=== PATIENT | female | born 1970 | race Hispanic/Latino ===

== ENCOUNTER 2023-12-16 15:11 | Emergency (ER) | payer BC ==
--- OUTSIDE RECORDS SUMMARY | 2023-12-16 15:14 | XMS REPORT | Continuity of Care Document ---
Author Name Unknown Address [address] [place] [address] [email or web address] Address [address] [place] [address] Care Team Providers Care Commercial Or Institutional Cleaner Name Role Phone Cataula Jeannette Attending Clinician Unavailable Payers Payer Name Policy Type Policy Number Effective Date Expirati on Date Source [facility] 6 [id number] [facility] Problems Condition Name Condition Details Condition Category Status Onset Date Resolution Date Last Treatment Date Treating Clinician Comments Source [id number] Internal derangemen t of left knee Problem [facility] [id number] Hx of bariatric surgery Problem Active [facility] [id number] Amenorrhea Problem Active Com mon [facility] [id number] Injury of left lower leg, initial encounter Problem Active [facility] Allergies, Adverse Reactions, Alerts Allergy Name Allergy Type Status Severity Reaction(s) Onset Date Inactive Date Treating Clinician Comments Source Latex Latex Active Unknown [facility] Social History Social Habit Start Date Stop Date Quantity Comments Source History of Tobacco Use [facility] Sex Assigned At [facility] Smoking Status Start Date Stop Date Source Never Smoker [facility] Medications Ordered Medication Name Filled Medication Name Start Date Stop Date Current Medication? Ordering Clinician Indication Dosage Frequency Signature (SIG) Comments Components Source Calcium Calcium No Calcium Multivitami n - Multivitami n - No 1{table t} QD Multivitam in - Vital Signs Vital Name Observation Time Observation Value Comments Elena rivers height 2023-12-10 09:00:00 56 [in_i] Commo n [facility] weight 2023-12-10 09:00:00 214.6 [lb_av] Co mmon [facility] temperature 2023-12-10 09:00:00 97.7 [degF] Com mon [facility] bmi 2023-12-10 09:00:00 48.11 kg/m2 Comm on [facility] oximetry 2023-12-10 09:00:00 99 % Comm n [facility] respiratory rate 2023-12-10 09:00:00 17 /min [facility] blood pressure systolic 2023-12-10 09:00:00 115 mm[Hg] [facility] blood pressure diastolic 2023-12-10 09:00:00 65 mm[Hg] [facility] height 2021-10-02 13:30:00 56 [in_i] Commo n [facility] weight 2021-10-02 13:30:00 207 [lb_av] Comm on [facility] bmi 2021-10-02 13:30:00 46.4 kg/m2 Commo n [facility] blood pressure systolic 2021-10-02 13:30:00 124 mm[Hg] [facility] blood pressure diastolic 2021-10-02 13:30:00 76 mm[Hg] [facility] height 2021-09-14 10:00:00 56 [in_i] Commo n [facility] weight 2021-09-14 10:00:00 207.4 [lb_av] Co mmon [facility] temperature 2021-09-14 10:00:00 97.5 [degF] Com mon [facility] bmi 2021-09-14 10:00:00 46.49 kg/m2 Comm on [facility] oximetry 2021-09-14 10:00:00 99 % Commo n [facility] respiratory rate 2021-09-14 10:00:00 18 /min [facility] blood pressure systolic 2021-09-14 10:00:00 117 mm[Hg] [facility] blood pressure diastolic 2021-09-14 10:00:00 70 mm[Hg] [facility] Encounters Start Date/Time End Date/Time Encounter Type Admission Type Attending [facility] Care Facility Care Department Encounter ID Source 2023-12-10 08:15:00 Outpatient CataulaJeannette mandujano [facility]C ST[facility] [id number] [facility] 2023-12-06 09:54:00 Outpatient Jeannette Balderas [facility] ST[facility] [id number] [facility] 2023-08-21 08:27:00 Outpatient Jeannette Balderas [facility] ST[facility] [id number] [facility] 2023-04-24 10:36:00 Outpatient Jeannette Balderas [facility] ST[facility] [id number] [facility] 2022-02-27 15:06:03 Outpatient Jeannette Balderas [facility] ST[facility] [id number] [facility] 2021-11-20 11:33:03 Outpatient Jeannette Balderas [facility] ST[facility] [id number] [facility] 2021-11-10 14:50:00 Outpatient Jeannette Balderas STL[facility] ST[facility] [id number] [facility] 2021-10-02 13:17:01 Outpatient Jeannette Balderas [facility] ST[facility] [id number] [facility] 2021-09-19 09:49:03 Outpatient Jeannette Balderas [facility] ST[facility] [id number] [facility] 2021-09-14 09:31:03 Outpatient Jeannette Balderas [facility] ST[facility] [id number] [facility] 2023-12-10 00:00:00 2023-12-10 00:00:00 OFFICE VISIT NEW PT LEVEL 4 [facility] ST[facility] [id number] [facility] 2021-11-28 00:00:00 2021-11-28 00:00:00 (TEL) [facility]C ST[facility]C [id number] [facility] 2021-11-27 00:00:00 2021-11-27 00:00:00 OL DIG E/M SVC 5-10 MIN [facility]LMLC STL[facility]C [id number] [facility] 2021-11-16 00:00:00 2021-11-16 00:00:00 (TEL) STLMLC STL[facility]C [id number] [facility] 2021-11-03 00:00:00 2021-11-03 00:00:00 (TEL) [facility]C ST[facility]C [id number] [facility] 2021-10-05 00:00:00 2021-10-05 00:00:00 (TEL) [facility]C STL[facility]C [id number] [facility] 2021-10-04 00:00:00 2021-10-04 00:00:00 (TEL) [facility]C ST[facility]C [id number] [facility] 2021-10-02 00:00:00 2021-10-02 00:00:00 OFFICE VISIT NEW PT LEVEL 4 [facility] ST[facility] [id number] [facility] 2021-09-14 00:00:00 2021-09-14 00:00:00 OFFICE VISIT EST PT LEVEL 3 [facility] ST[facility]C [id number] [facility]
[2023-12-16] MEDS ORDERED: HYDROCODONE/APAP 5/325 MG TAB ONE (15:35)
--- NOTE | 2023-12-16 16:52 | RAD REPORT ---
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 No fracture, dis location or aggressive marrow pattern. Trace joint fluid.
--- NOTE | 2023-12-16 17:16 | EDPHYS ---
Physician Documentation [facility] Name: Judy Presley Age: 53 yrs Sex: Female : 1970 Arrival Date: 12/16/2023 Time: 15:11 Bed 9 Private MD: ED Physician Colten Sparks HPI: 12/15 15:26 This 53 yrs old Female presents to ER via Wheelchair with complaints of Knee ms3 Pain. 15:26 43-year-old female with past medical history of asthma presents to the emergency ms3 department for 3 weeks of left knee pain. Patient states an MRI with contrast was ordered by her primary care nurse practitioner and has been unable to reach her to schedule the MRI without contrast. Patient states she has been taking Tylenol 3 without relief. She denies nausea, vomiting. Patient states pain began after falling after stepping in a pothole 3 weeks ago.. ACTUARIAL INTERNSHIP: 16:50 unknown al5 Historical: - Allergies: 15:22 No Known Allergies; ll1 - PMHx: 15:22 Asthma; ll1 - PSHx: 15:22 gastric bypass; hernia repair; Cholecystectomy; ll1 - Immunization history:: Adult Immunizations up to date. - Infectious Disease History:: Denies. - Social history:: Smoking status: Patient denies any tobacco usage or history of. ROS: 15:26 Constitutional: Negative for fever, and chills. Cardiovascular: Negative for chest ms3 pain, and palpitations. Respiratory: Negative for shortness of breath, cough, wheezing, and pleuritic chest pain, Abdomen/GI: Negative for abdominal pain, nausea, vomiting, diarrhea, and constipation, 15:26 MS/extremity: Positive for Left knee pain, Exam: 15:26 Constitutional: This is a well developed, well nourished patient who is awake, alert, ms3 and in no acute distress. Chest/axilla: Normal chest wall appearance and motion. Nontender with no deformity. Cardiovascular: Regular rate and rhythm with a normal S1 and S2. No gallops, murmurs, or rubs. Normal PMI, no JVD. No pulse deficits. Respiratory: Lungs have equal breath sounds bilaterally, clear to auscultation and percussion. No rales, rhonchi or wheezes noted. No increased work of breathing, no retractions or nasal flaring. Abdomen/GI: Soft, non-tender, with normal bowel sounds. No distension or tympany. No guarding or rebound. No evidence of tenderness throughout. 15:26 Musculoskeletal/extremity: Extremities: noted in the Left knee: contusion, swelling, tenderness, Vital Signs: 15:21 BP 142 / 88; Pulse 70; Resp 16; Temp 97; Pulse Ox 97% on R/A; Weight 95.25 kg; Height 4 ll1 ft. 9 in. ; Pain 10/10; 16:49 BP 103 / 52; Pulse 65; Resp 16; Pulse Ox 100% on R/A; Pain 5/10; al5 17:49 BP 122 / 85; Pulse 60; Resp 16; Pulse Ox 100% on R/A; al5 15:21 Body Mass Index 45.44 (95.25 kg, 144.78 cm) ll1 15:21 Pain Scale: Adult ll1 16:49 Pain Scale: Adult al5 MDM: 15:24 Patient medically screened. ms3 15:26 Differential diagnosis: closed fracture, contusion. ms3 17:15 Data reviewed: vital signs, nurses notes, radiologic studies, and as a result, I will ms3 discharge patient. I considered the following discharge prescriptions or medication management in the emergency department Medications were administered in the Emergency Department. See MAR. Independent interpretation of the following test(s) in the Emergency Department X-Ray: My interpretation is Left knee x-ray images reviewed by me do not reveal fracture. Counseling: I had a detailed discussion with the patient and/or guardian regarding the historical points, exam findings, and any diagnostic results supporting the discharge/admit diagnosis, radiology results, the need for outpatient follow up, to return to the emergency department if symptoms worsen or persist or if there are any questions or concerns that arise at home. Special discussion: I discussed with the patient/guardian in detail that at this point there is no indication for admission to the hospital. It is understood, however, that if the symptoms persist or worsen the patient needs to return immediately for re-evaluation. ED course: Discussed imaging with patient. Patient to follow-up with primary care physician in 2 to 3 days. Patient understands and agrees with plan. All questions were answered. Return precautions discussed include worsening symptoms, or any other concerns. 12/15 15:25 Order name: Knee Left 3 View XRAY; Complete Time: 16:55 ms3 12/15 17:14 Order name: Knee Immobilizer; Complete Time: 17:33 ms3 Administered Medications: 15:38 Drug: HYDROcodone-acetaminophen PO 5 mg-325 mg 1 tabs PO once Route: PO; cm10 16:50 Follow up: Response: No adverse reaction al5 Disposition Summary: 12/16/23 17:15 Discharge Ordered Notes: Location: Home ms3 Condition: Stable ms3 Diagnosis - Pain in left knee ms3 Followup: ms3 - With: Private Physician - When: 2 - 3 days - Reason: Recheck today's complaints Discharge Instructions: - Discharge Summary Sheet ms3 - Acute Knee Pain, Adult ms3 Forms: - Medication Reconciliation Form ms3 - Antibiotic Education ms3 - Prescription Opioid Use ms3 - Patient Portal Instructions ms3 - Leadership Thank You Letter ms3 Signatures: Dispatcher [employer] Jennifer Guy RN RN ll1 Colten Sparks DO DO ms3 Ariadne Rios RN RN cm10 Latosha Charles RN al5 Corrections: (The following items were deleted from the chart) 15:25 15:25 Knee Left 3 View+RAD.RAD.BRZ ordered. EDMS EDMS
--- NOTE | 2023-12-16 17:16 | ER ---
Nurse's Notes [facility] Name: Judy Presley Age: 53 yrs Sex: Female : 1970 Arrival Date: 12/16/2023 Time: 15:11 Bed 9 Private MD: Diagnosis: Pain in left knee Presentation: 12/15 15:21 Chief complaint: Patient states: L knee/leg pain for 3 weeks. SawDilia Mcbride Crooke and is ll1 trying to get MRI. Pain and bruising to LLE. Coronavirus screen: Client denies travel out of the [place] in the last 14 days. At this time, the client does not indicate any symptoms associated with coronavirus-19. Ebola Screen: Patient denies travel to an Ebola-affected area in the 21 days before illness onset. Initial Sepsis Screen: Does the patient meet any 2 criteria? No. Patient's initial sepsis screen is negative. Does the patient have a suspected source of infection? No. Patient's initial sepsis screen is negative. Risk Assessment: Do you want to hurt yourself or someone else? Patient reports no desire to harm self or others. Onset of symptoms was November 22, 2023. 15:21 Method Of Arrival: Wheelchair ll1 15:21 Acuity: CANDELARIA 4 ll1 Triage Assessment: 15:24 General: Appears uncomfortable, Behavior is calm, cooperative, appropriate for age. ll1 Pain: Complains of pain in left leg Pain currently is 10 out of 10 on a pain scale. Quality of pain is described as aching. Musculoskeletal: Reports pain in left leg. CREDIT VERIFIER: 16:50 unknown al5 Historical: - Allergies: 15:22 No Known Allergies; ll1 - PMHx: 15:22 Asthma; ll1 - PSHx: 15:22 gastric bypass; hernia repair; Cholecystectomy; ll1 - Immunization history:: Adult Immunizations up to date. - Infectious Disease History:: Denies. - Social history:: Smoking status: Patient denies any tobacco usage or history of. Screenin:41 [facility] ED Fall Risk Assessment (Adult) History of falling in the last 3 months, cm10 including since admission No falls in past 3 months (0 pts) Confusion or Disorientation No (0 pts) Intoxicated or Sedated No (0 pts) Impaired Gait Yes (1 pt) Mobility Assist Device Used Yes (1 pt) Altered Elimination No (0 pt) Score/Fall Risk Level 0 - 2 = Low Risk Oriented to surroundings, Maintained a safe environment, Hourly rounding (assess needs \T\ fall precautionary measures) done. Abuse screen: Denies threats or abuse. Denies injuries from another. Nutritional screening: No deficits noted. Tuberculosis screening: No symptoms or risk factors identified. Assessment: 15:42 General: Appears in no apparent distress. comfortable, Behavior is calm, cooperative. cm10 Pain: Complains of pain in left leg Pain does not radiate. Pain currently is 10 out of 10 on a pain scale. Neuro: No deficits noted. Level of Consciousness is awake, alert, obeys commands, Oriented to person, place, time, situation, Appropriate for age. Respiratory: No deficits noted. Airway is patent Respiratory effort is even, unlabored, Respiratory pattern is regular, symmetrical. Musculoskeletal: Reports pain in left leg. Vital Signs: 15:21 BP 142 / 88; Pulse 70; Resp 16; Temp 97; Pulse Ox 97% on R/A; Weight 95.25 kg; Height 4 ll1 ft. 9 in. ; Pain 10/10; 16:49 BP 103 / 52; Pulse 65; Resp 16; Pulse Ox 100% on R/A; Pain 5/10; al5 17:49 BP 122 / 85; Pulse 60; Resp 16; Pulse Ox 100% on R/A; al5 15:21 Body Mass Index 45.44 (95.25 kg, 144.78 cm) ll1 15:21 Pain Scale: Adult ll1 16:49 Pain Scale: Adult al5 ED Course: 15:13 Patient arrived in ED. im 15:13 Colten Sparks DO is Attending Physician. ms3 15:22 Triage completed. ll1 15:24 Arm band placed on Patient placed in an exam room, on a stretcher. ll1 15:42 Patient has correct armband on for positive identification. Bed in low position. Call cm10 light in reach. Side rails up X2. Provided Education on: ER process and procedures. Cardiac monitoring not applicable on this patient. 15:42 No provider procedures requiring assistance completed. cm10 16:46 Knee Left 3 View XRAY In Process Unspecified. EDMS 16:49 Latosha Charles, ROB is Primary Nurse. al5 17:31 Patient did not have IV access during this emergency room visit. al5 17:32 placed patient in a L knee immobilizer and set up crutches. pt tolerated well.. al5 Administered Medications: 15:38 Drug: HYDROcodone-acetaminophen PO 5 mg-325 mg 1 tabs PO once Route: PO; cm10 16:50 Follow up: Response: No adverse reaction al5 Medication: 15:41 VIS not applicable for this client. cm10 Outcome: 17:15 Discharge ordered by . ms3 17:49 Discharged to home with family, al5 17:49 Condition: good 17:49 Discharge instructions given to patient, family, Instructed on discharge instructions, follow up and referral plans. medication usage, Demonstrated understanding of instructions, follow-up care, medications, 17:50 Patient left the ED. al5 Signatures: Dispatcher [employer] EDMS Jennifer Fowler RN RN ll1 Colten Sparks DO DO ms3 Funmi Murillo Clarissa, RN RN cm10 Latosha Charles RN RN al5 Corrections: (The following items were deleted from the chart) 15:25 15:21 BP 142 / 88; Pulse 70bpm; Resp 16bpm; Pulse Ox 97% RA; Temp 97F; Pain 10/10, ll1 Adult; ll1
[2023-12-16 18:16] VITALS: BP 122/85; TEMP 97; O2SAT 100
== END 2023-12-16 17:50 | disposition home or self-care (01) ==
LOC: ER 15:11
DX: M25.562 Pain in left knee (principal)
CPT/HCPCS: 99283